=== PATIENT | female | born 1945 | race Caucasian/White ===

== ENCOUNTER 2016-05-27 10:23 | Emergency (ER) | payer MEDICARE ==
[2016-05-27 10:57] LABS: #Basophils 0.1 thou/uL (0.0-0.2); #Lymphocytes 1.5 thou/uL (1.20-3.40); #Monocytes 0.9 thou/uL (0.11-0.59); #Neutrophils 12.2 thou/uL (1.40-6.50); %Basophils 0.5 % (0.0-1.0); %Eosinophils 0.1 % (0.0-10.0); %Lymphocytes 10.4 % (21.0-51.0); %Monocytes 5.9 % (0.0-10.0); Hemoglobin 12.7 g/dL (12.0-16.0); Mean Corpuscular HGB CONC 33.4 g/dL (32.0-36.0); Mean Corpuscular Hemoglobin 31.4 pg (27.0-31.0); Mean Corpuscular Volume 94.3 fl (81.0-99.0); Mean Platelet Volume 9.4 fL (7.4-10.4); Platelet Count 164 thou/uL (130-400); RBC Distribution Width 12.1 % (11.5-14.5); Red Blood Cell (RBC) Count 4.03 mill/uL (4.20-5.40); White Blood Cell (WBC) Count 14.7 thou/uL (4.8-10.8)
[2016-05-27 11:13] LABS: ALT (SGPT) 6 U/L (0-55); AST (SGOT) 14 U/L (5-34); Albumin 3.8 g/dL (3.4-4.8); Alkaline Phosphatase 74 U/L (40-150); Anion Gap 14 mmol/L (10-20); BUN (Urea Nitrogen) 8 mg/dL (9.8-20.1); Bilirubin, Total 0.4 mg/dL (0.2-1.2); Calc. Creatinine Clearance 0 mL/min (70-130); Calcium 9.1 mg/dL (7.8-10.44); Carbon Dioxide 23 mmol/L (23-31); Chloride 105 mmol/L (98-107); Estimated GFR-MDRD 82; Globulin 3.4 g/dL (2.4-3.5); Glucose 122 mg/dL (83-110); Lipase 9 U/L (8-78); Potassium 4.3 mmol/L (3.5-5.1); Protein, Total 7.2 g/dL (5.8-8.1); Sodium 138 mmol/L (136-145)
[2016-05-27 11:14] LABS: CKMB 0.4 ng/mL (0-6.6); Troponin I Less than 0.010 ng/mL (< 0.028)
[2016-05-27 11:25] LABS: Bilirubin Negative (Negative); Blood, Urine Moderate (Negative); Clarity Slightly Cloudy (Clear); Glucose, Urine (Dipstick) Negative (Negative); Leukocyte Trace (Negative); Nitrite Negative (Negative); Protein, Urine (Dipstick) Negative (Neg-Trace); Specific Gravity, Urine 1.015 (1.005-1.030); pH, Urine 8.5 (5.0-9.0)
[2016-05-27 11:26] LABS: Bacteria/HPF Rare-Few HPF (None Seen); Squamous Epithelial 0-3 HPF (0-3); WBC/HPF 0-3 HPF (0-3)
--- NOTE | 2016-05-27 20:39 | RAD ---
CHEST TWO VIEWS 05/27/16 Comparison is made with a 05/14/15 study. The heart is normal in size. There are no effusions. While it is a little hazy in the right base med ially, on the lateral view I cannot definitely confirm an infiltrate there. The area might be looked again with a subsequent x-ray is cough continues. The bones are osteopenic. A few of the thoracic v ertebrae may have the beginnings of some compressions, but they are not substantial. IMPRESSION: No definite acute findings. There may be a little increased haziness in the right base, but it is an equivocal finding not confirmed on the lateral view. Consider followup chest x-ray if symptoms cont inue. POS: HOME
== END 2016-05-27 11:47 | disposition home or self-care (01) ==
LOC: BURERS 10:23
DX: J18.9 Pneumonia, unspecified organism (principal); F41.9 Anxiety disorder, unspecified; F17.210 Nicotine dependence, cigarettes, uncomplicated
CPT/HCPCS: 71020; 80053; 81003; 81015; 82553; 83690; 84484; 85025; 93005

== ENCOUNTER 2017-04-13 07:51 | Outpatient (CLI) | payer MEDICARE ==
--- NOTE | 2017-04-13 20:49 | CT ---
CT ABDOMEN AND PELVIS WITH CONTRAST: Date: 04-13-17 Technique: Spiral CT of the abdomen and pelvis was performed for evaluation in this patient with irritable bowel syndrome. Axial slices were acquired after giving both oral and IV contrast. Coronal and sagittal re constructions were done afterwards. FINDINGS: The lung bases are clear. The liver, spleen, pancreas, adrenal glands, kidneys, and abdominal aorta w ere unremarkable in appearance. The gallbladder was decompressed through was not seen well, but no ob vious calcifications were seen in association with it. No mass or hydronephrosis was seen in either k [place]. There are some arteriosclerotic changes in the aorta, though they are not dramatic. Both the S MA and celiac arteries fill well. The AURORA is also seen filling. There is no distention of bowel. No bowel wall thickening was seen. There is no inflammatory change a round bowel. No free air or free fluid was present. The mesenteric regions were unremarkable. CT of the pelvis showed no pelvic masses, fluid collections, or inflammatory changes. The urinary con dder is not well evaluated due to being only partially distended. There are degenerative changes pres ent throughout the lumbar spine. There is suggestion of some mild degree of central canal stenosis at L3-4 and L4-5 due to a combination of facet hypertrophy and mild concentrically bulging discs. IMPRESSION: No acute abdominal or pelvic findings. POS: HOME
== END 2017-04-13 07:52 | disposition home or self-care (01) ==
LOC: BURCT 07:51
PROVIDERS: ATTEND Internal Medicine Gastroenterology
DX: K58.1 Irritable bowel syndrome with constipation (principal); R10.33 Periumbilical pain
CPT/HCPCS: 74177

== ENCOUNTER 2018-03-11 18:00 | Emergency (ER) | payer MEDICARE ==
[2018-03-11] MEDS ORDERED: Acetaminophen 325 MG TAB ONE (20:33)
--- NOTE | 2018-03-11 21:08 | RAD ---
RIGHT HIP TWO VIEWS: 03/11/18 No fracture was seen. there is no dislocation. Joint space is normal in width. The adjacent pubic r ing appears intact. IMPRESSION: No acute finding. POS: HOME
--- NOTE | 2018-03-11 22:18 | CT ---
CT OF THE PELVIS WITHOUT CONTRAST 03/11/18 No fractures were identified. The pelvic bones all appeared intact. The visible portions of the lower lumbar spine showed no fracture. There was a mild concentric bulge at L5-S1 and some mild to moderat e spinal stenosis at L4-L5. The visible pelvic structures appeared intact with no sign of hemorrhage or free fluid. Both hips appeared intact. IMPRESSION: No acute traumatic changes. POS: HOME
--- NOTE | 2018-03-12 07:46 | RAD ---
RIGHT FEMUR 03/11/18 Four views shows no evidence of fracture. The femur appears intact. IMPRESSION: No acute findings. POS: HOME
== END 2018-03-11 21:45 | disposition home or self-care (01) ==
LOC: BURERS 18:00
DX: S73.101A Unspecified sprain of right hip, initial encounter (principal); F17.210 Nicotine dependence, cigarettes, uncomplicated; W19.XXXA Unspecified fall, initial encounter
CPT/HCPCS: 72192

== ENCOUNTER 2024-11-22 00:24 | Emergency (ER) | payer MEDICARE ==
[2024-11-22] MEDS ORDERED: Ketorolac Tromethamine 30 MG (1 mL) VIAL ONE (01:39)
== END 2024-11-22 02:29 | disposition home or self-care (01) ==
LOC: BURERS 00:24
DX: M62.830 Muscle spasm of back (principal); F17.210 Nicotine dependence, cigarettes, uncomplicated
CPT/HCPCS: 72072; J1885; Q0162; 96372; 99283

== ENCOUNTER 2024-12-12 11:30 | Outpatient (CLI) | payer MEDICARE | END 2024-12-12 11:31 | disposition home or self-care (01) | LOC: BURCT 11:30 | PROVIDERS: ATTEND Family Medicine | DX: M53.82 Other specified dorsopathies, cervical region (principal); G95.20 Unspecified cord compression | CPT/HCPCS: 72128 ==